=== PATIENT | female | born 1950 | race Caucasian/White ===

== ENCOUNTER 2019-05-18 07:26 | Emergency (ER) | payer OTHER, SELFPAY ==
[2019-05-18 07:37] VITALS: BP 156/72; PULSE 68; RESP 18; TEMP 36.2; O2SAT 100; BMI 28.3
--- NOTE | 2019-05-18 07:42 | DI.RAD.S_ITS ---
PROCEDURE: XR HIP W PEL IF DONE RT 2V INDICATIONS: hip pain s/p trip and fall TECHNIQUE: 2 views of the hip were acquired. COMPARISON: None. FINDINGS: Bones: No fractures or dislocations. No suspicious bony lesions. The visualized pelvic ring appears intact. Soft tissues: No suspicious soft tissue calcifications or masses. IMPRESSION: No acute radiographic findings. If pain persists, consider repeat imaging in 5-7 days to exclude occult injury. Dictated by: Kyleigh Ellington M.D. on 05/18/2019 at 7:52 Approved by: Kyleigh Ellington M.D. on 05/18/2019 at 7:57
--- NOTE | 2019-05-18 07:51 | ED_ITS ---
HPI - Extremity Injury (Lower) General Chief Complaint: Extremity Injury, Lower Stated Complaint: fall yesterday, right hip/groin pain Time Seen by Provider: 05/18/19 07:40 Source: patient Mode of arrival: ambulatory Limitations: no limitations History of Present Illness HPI Narrative: This is a 69-year-old female comes to the emergency department with complaint of right hip pain as well some right groin pain. Patient states [place] she [place] the [place], she caught her flip-flop on a crack in the sidewalk and fell onto her right hip and elbow. Patient states she has an abrasion on her elbow and little bit of pain but has normal movement. She states she has some pain in the hip but notices it more in the right groin. She states that it is not particularly painful if she is just standing but when she tries to walk, go upstairs or particularly coming down stairs she notices the discomfort. She did take some ibuprofen and a muscle relaxant. Patient denies hitting her head she states that her neck feels a little tight but she denies any pain in the bone, no other back pain. No chest pain or shortness of breath. No unusual bruising. No nausea or vomiting, no urinary or GI symptoms. Valentina shah denies any weakness or numbness in her extremities. She does state the pain sort of radiates down her leg a little. She states that she takes medicine for cholesterol as well as gabapentin. She denies any hypertension, diabetes or kidney issues. She had her ovaries out and had her adenoids removed but denies other surgeries. Denies any other allergies, denies any tobacco, alcohol or illicit. Related Data Allergies Allergy/AdvReac Type Severity Reaction Status Date / Time No Known Drug Allergies Allergy Verified 05/18/19 07:41 Review of Systems Review of Systems ROS Unobtainable: All systems reviewed & are unremarkable except as noted in HPI and below Constitutional Denies chills, Denies fever(s), Denies lethargy and Denies weakness ENT Ears, Nose, Mouth, and Throat: Reports neck pain (Tightness) Cardiovascular Denies chest pain, Denies dyspnea and Denies dyspnea on exertion Respiratory Denies cough, Denies dyspnea and Denies dyspnea on exertion Gastrointestinal Gastrointestinal: Denies abdominal pain, Denies change in bowel habits, Denies diarrhea, Denies nausea and Denies vomiting Genitourinary Denies hematuria, Denies dysuria, Denies flank pain, Denies urinary incontinence and Denies urinary urgency Musculoskeletal Reports as per HPI, Denies back pain, Reports arthralgias (Right hip), Denies limited range of motion, Denies muscle weakness, Reports neck pain (Tightness), Denies numbness, Reports radiating pain into limb (Right hip and leg), Reports stiffness, Denies tingling and Reports other (Abrasion right arm) Integumentary/Breasts Denies unusual bruising and Reports other (Abrasion right arm) Neurologic Reports as per HPI, Denies focal weakness, Denies numbness, Denies sensory deficit, Denies tingling and Denies weakness [facility] Social History Smoking Status: Former smoker Social History (Updated 05/18/19 @ 07:54 by Lluvia Coley DO) Smoking Status: Former smoker additional social history: patient lives in [place] Exam Narrative Exam Narrative: GEN: Patient appears in no acute distress. HEAD: No evidence of trauma, no raccoon/Fontaine sign. NECK: Nontender, painless range of motion, trachea midline Negative Nexus criteria, there is no mid line tenderness, distracting injury, altered mental status, neuro deficit, recent EtOH. EYES: PERRLA, EOMI ENT: External inspection normal, trachea is midline. no dental or oral injury, airway is normal and with normal occlusion, No bony tenderness RESP: Chest is nontender and has symmetric movement, no ecchymosis, breath sounds are normal no crackles, wheezes or rales CVS: Heart sounds are normal, no murmur noted, No JVD. ABG/GI: Nontender, soft, normal bowel sounds, no distention, no organomegaly, pelvic rock is negative NEURO: Oriented AOx3, neuro is grossly intact, sensation and motor is normal all 4 extremities moving, cranial nerves II through XII are intact, GCS is 15 PSYCH: Normal mood and affect SKIN: Intact, warm and dry, no crepitus and without decubitus BACK: No CVA tenderness, no vertebral tenderness, no step-off's, no crepitus EXT: Patient has no bony tenderness of her right upper extremity, patient does have abrasion on his forearm, patient has some mild tenderness over the greater trochanter, nontender with palpation of the groin, she has full range of motion active and passively of the hip as well as knee and lower extremity on right. Patient has normal muscle strength in bilateral upper and lower extremities. Hips are nontender, no pedal edema, normal color and temperature, normal range of motion of extremities with normal tendon exam, 2+ pulses in all four extremities Initial Vital Signs Initial Vital Signs: Vital Signs Temperature 97.1 F L 05/18/19 07:37 Pulse Rate 68 05/18/19 07:37 Respiratory Rate 18 05/18/19 07:37 Blood Pressure 156/72 H 05/18/19 07:37 Pulse Oximetry 100 05/18/19 07:37 Scores GCS [employer] coma scale eye opening: Spontaneous Travis coma scale verbal response: Orientated [employer] coma scale motor response: Obey commands Travis coma scale total score: 15 Course Orders Ordered: ED Orders 05/18/19 07:42 XR hip w pel if done RT 2V Stat Vital Signs - 8 hr 05/18/19 07:37 Temperature 97.1 F L Pulse Rate 68 Respiratory Rate 18 Blood Pressure 156/72 H Pulse Oximetry 100 [facility] - Extremity Injury (Lower) Imaging Data Right hip x-ray: Attestation: I personally reviewed and interpreted this imaging study as follows: My impression: no fx noted. [facility] Narrative Medical decision making narrative: I discussed with patient no sign of fracture noted on x-ray when I evaluated. Patient has been weight-bearing without issue. She has had a little bit increased pain on day 2 of her injury. Otherwise she has been controlling her pain well with ibuprofen and a muscle relaxant. Patient defers further prescription. Patient and I discussed that if she continues to have symptoms or they rapidly increasing that she should have repeat imaging and she was giving a disc of her x-ray films here. Patient defers any crutches. Discharge Plan Departure Patient Disposition: Home Clinical Impression: Acute hip pain, Abrasion forearm, Fall Discharge Date/Time: 05/18/19 08:40 Interventions: ED Discharge Assessment Last Done: 05/18/19 08:40 Instructions: DI for Hip Pain Activity Restrictions/Additional Instructions: Follow-up with your primary care physician in the next 5-7 days if your symptoms have not resolved. If your pain is continuing to worsen or is not improving in 7-10 days I would recommend repeat imaging. Continue home medications for pain and muscle relaxation. Return to the emergency department for fevers greater 100.4 F, rapidly worsening pain, new weakness, numbness inability to use your leg, walk/weightbear on her lower extremity or other new or concerning symptoms.
[2019-05-18 08:28] VITALS: BP 142/86; PULSE 64; RESP 14; O2SAT 95
[2019-05-18 08:40] VITALS: BP 142/86
== END 2019-05-18 08:40 | disposition home or self-care (01) ==
LOC: ED 08:41
PROVIDERS: Emergency Provider Emergency Medicine
DX: M25.551 Pain in right hip (principal); S50.819A Abrasion of unspecified forearm, initial encounter; W19.XXXA Unspecified fall, initial encounter
CPT/HCPCS: 73502; 99282; 99283